=== PATIENT | female | born 1990 | race Caucasian/White ===

== ENCOUNTER 2025-02-23 20:37 | Emergency (ER) | payer BC ==
[~2025-02-23 20:37] MED LIST: Iopamidol 300 61% 100 ML VIAL FS ONE
[2025-02-23 21:32] LABS: #Basophils 0.06 10x3/uL (0.0-0.2); #Eosinophils 0.16 10x3/uL (0.0-0.5); #Monocytes 1.93 10x3/uL (0.0-1.1); #Neutrophils 11.82 10x3/uL (1.5-8.4); %Basophils 0.4 % (0.0-2.0); %Eosinophils 1.0 % (0.0-6.0); %Lymphocytes 11.8 % (18.0-47.0); %Monocytes 12.1 % (0.0-10.0); %Neutrophils 73.9 % (40.0-75.0); Hematocrit 33.0 % (34.9-44.5); Hemoglobin 11.2 g/dL (12.0-15.5); Mean Corpuscular Hemoglobin 29.0 pg (27.0-33.0); Mean Corpuscular Volume 85.5 fL (81.6-98.3); Platelet Count 365 10x3/uL (150-450); Red Blood Cell (RBC) Count 3.86 10x6/uL (3.90-5.03); White Blood Cell (WBC) Count 15.98 10x3/uL (3.5-10.5)
[2025-02-23 21:48] LABS: ALT (SGPT) 13 U/L (Less than 34); AST (SGOT) 20 U/L (11-34); Albumin 2.9 g/dL (3.1-4.5); Alkaline Phosphatase 128 U/L (40-110); Anion Gap 12 mmol/L (10-20); BUN (Urea Nitrogen) 23 mg/dL (7.0-18.7); Bilirubin, Total 0.4 mg/dL (0.3-1.2); Calc. Creatinine Clearance 0 mL/min (70-130); Calcium 8.6 mg/dL (7.8-10.44); Carbon Dioxide 22 mmol/L (22-29); Chloride 108 mmol/L (98-107); Globulin 3.4 g/dL (2.4-3.5); Glucose 91 mg/dL (70-105); Lipase 53 U/L (8-78); Potassium 3.6 mmol/L (3.5-5.1); Sodium 138 mmol/L (136-145)
[2025-02-23 21:50] LABS: Glucose, Urine (Dipstick) Normal (Negative); Leukocyte 500 (Negative); Protein, Urine (Dipstick) 15 mg/dl (Neg-Trace); Specific Gravity, Urine 1.005 (1.005-1.030)
[2025-02-23 22:01] LABS: Bacteria/HPF 1+ HPF (None Seen); CAUTI Indications for Culture Pelvic or flank pain; WBC/HPF Greater than 50 HPF (0-3)
[2025-02-23 22:02] LABS: Urine Culture Reflex Yes Yes
[2025-02-23] MEDS ORDERED: cefTRIAXone (ROCEPHIN) 2 GM VIAL ONE (22:15)
== END 2025-02-23 23:30 | disposition home or self-care (01) ==
LOC: CSHERS 20:37
DX: N10 Acute pyelonephritis (principal)
CPT/HCPCS: 36415; 71045; 74177; 80053; 81001; 83605; 83690; 85025; 87040; 87077; 87086; 87149; 87186; 87428; 96374; J0696; Q9967